=== PATIENT | male | born 1990 | race Two or more races ===

== ENCOUNTER 2017-02-13 11:25 | Emergency (ER) | payer MEDICAID ==
[~2017-02-13] VITALS: Ht 172.7 cm; Wt 72.6 kg
[2017-02-13 11:52] VITALS: BP 108/66
== END 2017-02-13 13:36 | disposition home or self-care (01) ==
LOC: EDBD 11:25 → ER 11:25 → EDSEX 11:25 → ER 13:36
DX: F07.81 Postconcussional syndrome (principal)
CPT/HCPCS: 70450